=== PATIENT | female | born 1950 | race Caucasian/White ===

== ENCOUNTER 2017-01-25 12:08 | Outpatient (CLI) | payer MEDICARE, BC ==
[2017-01-25 12:21] LABS: CREATININE 0.7 mg/dL (0.4-1.0)
[2017-01-25] MEDS ORDERED: GADOBUTROL 7.5 MMOL/7.5 ML VIAL IVP ONE (13:45)
--- NOTE | 2017-01-25 16:57 | MRI Report ---
MRI BRAIN WITHOUT AND WITH CONTRAST INDICATION: 66-year-old female with dizziness. Has history of "cysts in brain". Please assess. COMPARISON: Head CT 10/09/2015 and brain MRI of 12/24/2015. TECHNIQUE: 1. T1 sagittal and fat-saturated T2 coronal. 2. Coronal fat saturated T2. 3. Axial T1 3-D, FLAIR, T2, T2* and DWI. 4. 7 mL IV Gadavist. T1 3-D axial. FINDINGS: There is generalized prominence of the cerebral cortical sulci, stable. Ventricular size is stable - no hydrocephalus. Again demonstrated are multiple, rounded, cystic-appearing lesions in the periventricular and deep wh ite matter of left cerebral hemisphere in the temporal lobe, frontal lobe, and parietal lobe. The hyp erintense signal from most of these lesions completely suppresses on the axial FLAIR sequence. Some o f the lesions in the deep white matter left parietal lobe (see image 16 of series 701) demonstrates s ome very minimal hyperintensity within them, unchanged. There is FLAIR hyperintensity, surrounding th e cluster of lesions, in the periventricular, deep white matter of left parietal lobe. In addition, s ome FLAIR hyperintensity is seen surrounding lesions in the periventricular white matter of the left temporal lobe. No FLAIR hyperintensity is identified surrounding lesions in the left meyers radiata a nd deep white matter of the mid left frontal lobe. The number of these cystic lesions appears unchang ed. No new lesions are identified. The size of the cysts appear completely stable. None of the lesion s demonstrate enhancement. There is no diffusion restriction within any of cysts. Scattered foci of T2 hyperintensity again noted in periventricular, deep, and subcortical white matte r of the cerebral hemispheres bilaterally, essentially unchanged and probably representing chronic mi croangiopathy. Flow voids are demonstrated in the main intracranial arteries. No evidence of acute infarction on DWI . No enhancing intraaxial or extraaxial mass lesion is demonstrated. No pathologic meningeal or cranial nerve enhancement is seen. There is normal intravascular contrast enhancement in the dural venous si nuses and deep venous structures. Again demonstrated is focal widening of extraaxial space, in anterior interhemispheric fissure along left side of falx, probably due to an underlying arachnoid cyst. No other abnormal extraaxial fluid c ollection is demonstrated. Limited assessment of the orbits reveals no gross pathology. There is minor mucosal thickening scattered throughout the ethmoid air cells. The paranasal sinuses a re otherwise clear. No significant mastoid or middle ear effusion is demonstrated. IMPRESSION: 1. Again demonstrated are numerous, intraaxial, nonenhancing, cystic-appearing lesions, in the left c erebral hemisphere, most likely representing dilated perivascular spaces. No interval change when com pared to MRI study 12/24/2015. In particular, none of the cysts have shown interval increase in size and no new cysts are demonstrated. 2. Stable appearance of previously demonstrated, supratentorial white matter disease. The findings ar e relatively nonspecific, however, this most likely represents chronic microangiopathy. 3. No acute intracranial pathology is demonstrated. In particular, there is no evidence of infarction , hemorrhage or space-occupying mass lesion. Referring Provider Line: [phone] SITE ID: [id number]
== END 2017-01-25 12:09 | disposition home or self-care (01) ==
LOC: DI 12:08
PROVIDERS: ATTEND Internal Medicine
DX: G93.0 Cerebral cysts (principal); R90.82 White matter disease, unspecified
CPT/HCPCS: 36415; 70553; 82565; A9585

== ENCOUNTER 2017-04-12 20:19 | Outpatient (CLI) | payer MEDICARE, BC ==
[2017-04-12 14:10] LABS: ALBUMIN/GLOBULIN RATIO 1.6 (1.0-2.2); BASOPHILS % (AUTO) 1.2 %; BUN - BLOOD UREA NITROGEN 17 mg/dL (6-20); CARBON DIOXIDE - CO2 30 mmol/L (21-32); CHLORIDE 102 mmol/L (101-111); CHOL/HDL RATIO 3.6 (<4.4); CHOLESTEROL 263 mg/dL; CREATININE 0.7 mg/dL (0.4-1.0); EOSINOPHILS # (AUTO) 0.1 10^3/uL (0.0-0.7); EOSINOPHILS % (AUTO) 3.4 %; GFR - MDRD 84 (>89); GLUCOSE 76 mg/dL (70-100); HCT - HEMATOCRIT 40.6 % (37.0-47.0); HDL CHOLESTEROL 73 mg/dL; HGB - HEMOGLOBIN 13.7 g/dL (12.0-16.0); LDL/HDL RATIO 2.4 (<4.4); LYMPHOCYTES # (AUTO) 1.1 10^3/uL (1.5-3.5); MEAN CORPUSCULAR HEMOGLOBIN 30.9 pg (27.0-31.0); MEAN CORPUSCULAR HGB CONC 33.8 g/dL (32.0-36.0); MEAN CORPUSCULAR VOLUME 91.5 fL (81.0-99.0); MEAN PLATELET VOLUME 9.5 fL (7.9-10.8); MONOCYTES # (AUTO) 0.3 10^3/uL (0.0-1.0); MONOCYTES % (AUTO) 9.6 %; NEUTROPHILS # (AUTO) 1.8 10^3/uL (1.5-6.6); NEUTROPHILS % (AUTO) 53.8 %; NUCLEATED RED BLOOD CELLS AUTO 0.1 /100WBC; POTASSIUM 3.9 mmol/L (3.5-5.0); RED BLOOD COUNT 4.44 10^6/uL (4.20-5.40); RED CELL DISTRIBUTION WIDTH 13.6 % (12.0-15.0); SODIUM 139 mmol/L (135-145); TOTAL PROTEIN 7.1 g/dL (6.7-8.2); TRIGLYCERIDES 71 mg/dL; UNCORRECTED WHITE BLOOD COUNT 3.3 x10^3/uL; VLDL CHOLESTEROL 14 mg/dL; WHITE BLOOD COUNT 3.3 x10^3/uL (4.8-10.8)
== END 2017-04-12 20:20 | disposition home or self-care (01) ==
LOC: LAB.R 20:19
PROVIDERS: ATTEND Internal Medicine
DX: Z79.899 Other long term (current) drug therapy (principal); E78.5 Hyperlipidemia, unspecified; M19.90 Unspecified osteoarthritis, unspecified site
CPT/HCPCS: 80053; 80061; 84443; 85025

== ENCOUNTER 2017-04-22 12:54 | Outpatient (CLI) | payer MEDICARE, BC ==
--- NOTE | 2017-04-22 18:18 | Ultrasound Report ---
THYROID ULTRASOUND: 04/22/2017 CLINICAL INDICATION: Thyroid enlargement and nodules seen on MRI. TECHNIQUE: Real-time scanning was performed with promotions representative static images obtained. FINDINGS: The right lobe measures 5.4 x 2.7 x 1.9 cm, and the left lobe measures 5.7 x 2.9 x 2.5 cm. The isthmus measures 2 mm. Both lobes demonstrate diffuse heterogeneity of echotexture, with multi ple confluent nodules. The largest nodule in the right lobe measures 2.8 x 2.0 x 1.6 cm, and is hete rogeneous, without calcifications or increased vascularity. The largest nodule in the left lobe pernell ures 3.5 x 2.8 x 2.3 cm, and is heterogeneous, without increased vascularity or calcifications. Both of the dominant nodules do demonstrate cystic spaces. IMPRESSION: MULTINODULAR GOITER. NO FINE NEEDLE ASPIRATION IS RECOMMENDED BY [facility]. JOB #: [id number] EXT JOB #:[id number]
== END 2017-04-22 12:55 | disposition home or self-care (01) ==
LOC: DI 12:54
PROVIDERS: ATTEND Registered Nurse
DX: E04.2 Nontoxic multinodular goiter (principal)
CPT/HCPCS: 76536

== ENCOUNTER 2017-05-19 14:45 | Outpatient (CLI) | payer MEDICARE, BC ==
--- NOTE | 2017-05-20 15:15 | DEXA Report ---
DEXA SCAN: 05/19/2017 CLINICAL INDICATION: Postmenopausal. TECHNIQUE: Dual energy x-ray absorptiometry (DXA) was performed on a Vatler system. Regions measured are the AP spine, femoral neck, and, if needed, forearm. COMPARISON: None. In accordance with the International Society for Clinical Densitometry (ISCD) guidelines, data from previous exams may be reanalyzed using current recommendations and techniques. This is done to allow a more accurate basis for comparison with the current study. FINDINGS The data for the lumbar spine is as follows: REGION BMD (g/cm/cm) T-SCORE Z-SCORE L1 1.165 0.3 1.8 L2 1.256 0.5 2.0 L3 1.309 0.9 2.4 L4 1.185 -0.1 1.4 TOTAL 1.228 0.4 1.9 NOTE: All evaluable vertebrae are used for classification. The data for the hip is as follows: REGION BMD (g/cm/cm) T-SCORE Z-SCORE Neck 1.029 -0.1 1.4 TOTAL 1.043 0.3 1.5 NOTE: The femoral neck or total proximal femur, whichever is lowest, is used for classification. IMPRESSION: THE WHO CLASSIFICATION BASED ON THE INTERNATIONAL REFERENCE STANDARD IS NORMAL. THE FRACTURE RISK IS NOT INCREASED. RECOMMENDATION: Patients with diagnosis of osteoporosis or osteopenia should have regular bone mineral density assessment. For those eligible for Medicare, routine testing is allowed once every 2 years. Testing frequency can be increased for patients who have rapidly progressing disease or for those who are receiving medical therapy to restore bone mass. COMMENT: World Health Organization (WHO) definitions for osteoporosis and osteopenia: NORMAL BMD: T-score at -1.0 or higher, fracture risk is low. OSTEOPENIA BMD: T-score between -1.0 and -2.5, fracture risk is increased. OSTEOPOROSIS BMD: T-score at -2.5 or lower, fracture risk high. National Osteoporosis Foundation recommends: 1. Obtain adequate dietary calcium (at least 1200 mg per day) and vitamin D (400 -800 international units per day). 2. Participate, as appropriate, in regular weightbearing and muscle- strengthening exercise. 3. Avoid tobacco use and reduce alcohol and caffeine intake. 4. For more detailed information see the website at www.NOF.org. MTDD
== END 2017-05-19 14:46 | disposition home or self-care (01) ==
LOC: DI 14:45
PROVIDERS: ATTEND Internal Medicine
DX: Z78.0 Asymptomatic menopausal state (principal)
CPT/HCPCS: 77080

== ENCOUNTER 2017-05-19 14:46 | Outpatient (CLI) | payer MEDICARE, BC ==
--- NOTE | 2017-05-21 16:23 | Mammography Report ---
DIGITAL SCREENING MAMMOGRAM: 05/19/2017 CLINICAL INDICATION: A 67-year-old nulliparous patient, for screening. COMPARISON: 04/2016, 03/2016, 03/2015. TECHNIQUE: Routine CC and MLO projections were obtained of the breasts. FINDINGS: The breasts again demonstrate scattered fibroglandular densities bilaterally. A few puncta te, typically benign calcifications are present. No suspicious masses, clustered microcalcifications, or regions of architectural distortion are identified. IMPRESSION: BENIGN FINDINGS. RECOMMENDATION: ROUTINE ANNUAL SCREENING UNLESS OTHERWISE CLINICALLY INDICATED. BIRADS CATEGORY 2-BENIGN FINDINGS. STANDARD QUALIFYING STATEMENTS 1. This examination was reviewed with the aid of Computer-Aided Detection (CAD). 2. A negative or benign imaging report should not delay biopsy if clinically suspicious findings are present. Consider surgical consultation if warranted. More than 5% of cancers are not identified by i maging. 3. Dense breasts may obscure an underlying neoplasm. JOB #: [id number] EXT JOB #:[id number]
== END 2017-05-19 14:47 | disposition home or self-care (01) ==
LOC: DI 14:46
PROVIDERS: ATTEND Registered Nurse
DX: Z12.31 Encounter for screening mammogram for malignant neoplasm of breast (principal)
CPT/HCPCS: 77067

== ENCOUNTER 2018-05-05 08:05 | Outpatient (CLI) | payer MEDICARE, BC ==
[2018-05-05 13:22] LABS: BASOPHILS % (AUTO) 1.3 %; EOSINOPHILS # (AUTO) 0.1 10^3/uL (0.0-0.7); EOSINOPHILS % (AUTO) 3.7 %; LYMPHOCYTES # (AUTO) 1.1 10^3/uL (1.5-3.5); LYMPHOCYTES % (AUTO) 29.4 %; MEAN CORPUSCULAR HEMOGLOBIN 31.3 pg (27.0-31.0); MEAN CORPUSCULAR HGB CONC 34.1 g/dL (32.0-36.0); MEAN CORPUSCULAR VOLUME 91.6 fL (81.0-99.0); MEAN PLATELET VOLUME 9.3 fL (7.9-10.8); MONOCYTES # (AUTO) 0.4 10^3/uL (0.0-1.0); MONOCYTES % (AUTO) 10.1 %; NEUTROPHILS # (AUTO) 2.1 10^3/uL (1.5-6.6); NEUTROPHILS % (AUTO) 55.5 %; PLT - PLATELET COUNT 249 10^3/uL (130-450); RED BLOOD COUNT 4.47 10^6/uL (4.20-5.40); RED CELL DISTRIBUTION WIDTH 13.2 % (12.0-15.0); WHITE BLOOD COUNT 3.8 x10^3/uL (4.8-10.8)
[2018-05-05 13:38] LABS: ALBUMIN 4.1 g/dL (3.2-5.5); ALBUMIN/GLOBULIN RATIO 1.5 (1.0-2.2); ALKALINE PHOSPHATASE 66 IU/L (42-121); ALT ALANINE AMINOTRANSFERASE 18 IU/L (10-60); AST ASPARTATE AMINOTRANSFERASE 22 IU/L (10-42); BUN - BLOOD UREA NITROGEN 14 mg/dL (6-20); CALCIUM 8.9 mg/dL (8.5-10.3); CARBON DIOXIDE - CO2 27 mmol/L (21-32); CHLORIDE 102 mmol/L (101-111); CHOL/HDL RATIO 3.7 (<4.4); CHOLESTEROL 260 mg/dL; CREATININE 0.7 mg/dL (0.4-1.0); GFR - MDRD 83 (>89); GLUCOSE 95 mg/dL (70-100); HDL CHOLESTEROL 70 mg/dL; LDL CHOLESTEROL,CALCULATED 172 mg/dL; LDL/HDL RATIO 2.5 (<4.4); SODIUM 138 mmol/L (135-145); TOTAL PROTEIN 6.8 g/dL (6.7-8.2); VLDL CHOLESTEROL 18 mg/dL
== END 2018-05-05 08:06 | disposition home or self-care (01) ==
LOC: LAB.R 08:05
PROVIDERS: ATTEND Internal Medicine
DX: R93.0 Abnormal findings on diagnostic imaging of skull and head, not elsewhere classified (principal); Z79.899 Other long term (current) drug therapy; E78.5 Hyperlipidemia, unspecified; M19.90 Unspecified osteoarthritis, unspecified site
CPT/HCPCS: 80053; 80061; 83721; 84443; 85025

== ENCOUNTER 2018-05-24 07:37 | Outpatient (CLI) | payer MEDICARE, BC ==
--- NOTE | 2018-05-25 14:42 | Mammography Report ---
Reason: SCREENING MAMMO Procedure Date: 05/24/2018 Accession Number: [id number] / [id number] Procedure: [facility] - Screening Mammo Dig Bilat CPT Code: FULL RESULT: EXAM: Screening Mammo Dig Bilat DATE: 05/24/2018 8:42 AM CLINICAL HISTORY: 68 year-old nulliparous female with family history of breast cancer in a paternal aunt in her 60s. TECHNIQUE: Bilateral CC and MLO views were obtained. COMPARISON: 05/19/2017, 05/06/2016, 04/21/2016, 04/18/2015. FINDINGS: The breasts demonstrate heterogeneously dense fibroglandular parenchyma bilaterally. No suspicious masses, clustered microcalcifications, or regions of architectural distortion are identified. IMPRESSION: Negative examination RECOMMENDATION: Routine annual screening unless otherwise clinically indicated. BIRADS CATEGORY 1: Negative STANDARD QUALIFYING STATEMENTS: 1. This examination was not reviewed with the aid of Computer-Aided Detection (CAD). 2. A negative or benign imaging report should not delay biopsy if clinically suspicious findings are present. Consider surgical consultation if warrented. More than 5% of cancers are not identified by imaging. 3. Dense breasts may obscure an underlying neoplasm. 4. This examination was reviewed with the aid of 3D breast imaging (tomosynthesis).
== END 2018-05-24 07:38 | disposition home or self-care (01) ==
LOC: DI 07:37
DX: Z12.31 Encounter for screening mammogram for malignant neoplasm of breast (principal); Z80.3 Family history of malignant neoplasm of breast
CPT/HCPCS: 77067

== ENCOUNTER 2018-05-24 07:41 | Outpatient (CLI) | payer MEDICARE, BC ==
--- NOTE | 2018-05-24 10:45 | Ultrasound Report ---
Reason: NONTOXIC GOITER, UNSPECIFIED Procedure Date: 05/24/2018 Accession Number: [id number] / [id number] Procedure: US - Head or Neck Soft Tissue CPT Code: FULL RESULT: EXAM: THYROID ULTRASOUND EXAM DATE: 05/24/2018 09:34 AM. CLINICAL HISTORY: Nontoxic goiter, unspecified. COMPARISON: Thyroid ultrasound 04/22/2017. TECHNIQUE: Real time sonographic imaging of the thyroid was performed by the us marketing director. Multiple claim representative static images were saved for review. FINDINGS: THYROID GLAND: Right Lobe: 5.5 x 2.1 x 1.9 cm, volume 11.5 cc. Heterogeneous echotexture with confluent multinodular appearance. Right Lobe Nodules: The largest discrete nodule measures 2.8 x 1.8 x 1.9 cm and demonstrates vascularity with color Doppler, contains cystic spaces and calcifications. Left Lobe: 5.9 x 2.7 x 2.4 cm, volume 20 cc. Heterogeneous echotexture with confluent multinodular appearance. Left Lobe Nodules: 3.1 x 2.0 x 2.5 cm vascular nodule with cystic spaces and calcifications as the dominant nodule. Isthmus: 0.2 cm AP. Isthmic Nodules: None. LYMPH NODES: No adenopathy demonstrated in the central or lateral compartment. OTHER: None. IMPRESSION: Multinodular goiter, overall similar in appearance to 2017 when accounting for differences in technique. No biopsy is recommended. Management recommendations are based on 2015 [place] [employer] Management Guidelines for Adult Patients with Thyroid Nodules and Differentiated Thyroid Cancer. RADIA
== END 2018-05-24 07:42 | disposition home or self-care (01) ==
LOC: DI 07:41
PROVIDERS: ATTEND Internal Medicine
DX: E04.2 Nontoxic multinodular goiter (principal)
CPT/HCPCS: 76536

== ENCOUNTER 2019-07-19 07:52 | Outpatient (CLI) | payer MEDICARE, BC ==
--- NOTE | 2019-07-19 08:55 | Mammography Report ---
Reason: ROUTINE MAMMO Procedure Date: 07/19/2019 Accession Number: [id number] / [id number] Procedure: WAYNE - Screening Mammo w/Ru CPT Code: Final Report FULL RESULT: EXAM: Screening Mammo w/Ru DATE: 07/19/2019 8:16 AM CLINICAL HISTORY: The patient is an asymptomatic 69-year-old female presenting for screening mammography. No reported personal nor family history of breast cancer. TECHNIQUE: (B) - Bilateral CC and MLO views were obtained. COMPARISON: 05/24/2018, 05/19/2017, 04/21/2016 PARENCHYMAL PATTERN: (D) - The breasts demonstrate heterogeneously dense fibroglandular parenchyma bilaterally. FINDINGS: The pattern of asymmetry is stable given positional variation. There are no suspicious masses, calcifications, or areas of distortion. IMPRESSION: Negative examination. BI-RADS category 1. RECOMMENDATION: (ANNUAL) - Recommend routine annual screening mammography. BI-RADS CATEGORY: (1) - Negative. STANDARD QUALIFYING STATEMENTS: 1. This examination was not reviewed with the aid of Computer-Aided Detection (CAD). 2. A negative or benign imaging report should not preclude biopsy if clinically suspicious findings are present. 3. Dense breasts may obscure an underlying neoplasm. 4. This examination was reviewed with the aid of 3D breast imaging (tomosynthesis).
== END 2019-07-19 07:53 | disposition home or self-care (01) ==
LOC: DI 07:52
DX: Z12.31 Encounter for screening mammogram for malignant neoplasm of breast (principal)
CPT/HCPCS: 77063; 77067

== ENCOUNTER 2019-07-19 08:19 | Outpatient (CLI) | payer MEDICARE, BC ==
[2019-07-19 08:51] LABS: ALBUMIN 4.2 g/dL (3.2-5.5); ALBUMIN/GLOBULIN RATIO 1.4 (1.0-2.2); ALKALINE PHOSPHATASE 69 IU/L (42-121); ALT ALANINE AMINOTRANSFERASE 19 IU/L (10-60); AST ASPARTATE AMINOTRANSFERASE 20 IU/L (10-42); BILIRUBIN,TOTAL 0.9 mg/dL (0.2-1.0); BUN - BLOOD UREA NITROGEN 13 mg/dL (6-20); CARBON DIOXIDE - CO2 32 mmol/L (21-32); CHLORIDE 102 mmol/L (101-111); CHOL/HDL RATIO 3.9 (<4.4); CHOLESTEROL 272 mg/dL; CREATININE 0.9 mg/dL (0.4-1.0); GFR - MDRD 62 (>89); GLUCOSE 102 mg/dL (70-100); HDL CHOLESTEROL 70 mg/dL; LDL CHOLESTEROL,CALCULATED 184 mg/dL; LDL/HDL RATIO 2.6 (<4.4); SODIUM 140 mmol/L (135-145); TOTAL PROTEIN 7.1 g/dL (6.7-8.2); VLDL CHOLESTEROL 18 mg/dL
[2019-07-19 08:59] LABS: BASOPHILS # (AUTO) 0.1 10^3/uL (0.0-0.1); BASOPHILS % (AUTO) 1.1 %; EOSINOPHILS # (AUTO) 0.2 10^3/uL (0.0-0.7); EOSINOPHILS % (AUTO) 3.4 %; HGB - HEMOGLOBIN 13.2 g/dL (12.0-16.0); LYMPHOCYTES # (AUTO) 1.1 10^3/uL (1.5-3.5); LYMPHOCYTES % (AUTO) 25.2 %; MEAN CORPUSCULAR HEMOGLOBIN 29.9 pg (27.0-31.0); MEAN CORPUSCULAR HGB CONC 31.7 g/dL (32.0-36.0); MEAN CORPUSCULAR VOLUME 94.3 fL (81.0-99.0); MEAN PLATELET VOLUME 10.3 fL (7.9-10.8); MONOCYTES # (AUTO) 0.5 10^3/uL (0.0-1.0); MONOCYTES % (AUTO) 11.5 %; NEUTROPHILS # (AUTO) 2.6 10^3/uL (1.5-6.6); NEUTROPHILS % (AUTO) 58.1 %; PLT - PLATELET COUNT 272 10^3/uL (130-450); RED BLOOD COUNT 4.41 10^6/uL (4.20-5.40); RED CELL DISTRIBUTION WIDTH 12.9 % (12.0-15.0); WHITE BLOOD COUNT 4.4 x10^3/uL (4.8-10.8)
== END 2019-07-19 08:20 | disposition home or self-care (01) ==
LOC: LAB 08:19
PROVIDERS: ATTEND Nurse Practitioner
DX: Z79.899 Other long term (current) drug therapy (principal); E04.9 Nontoxic goiter, unspecified; E78.5 Hyperlipidemia, unspecified
CPT/HCPCS: 36415; 80053; 80061; 83721; 84443; 85025

== ENCOUNTER 2020-08-07 08:36 | Outpatient (CLI) | payer MEDICARE, BC ==
--- NOTE | 2020-08-08 09:38 | Mammography Report ---
BILATERAL DIGITAL SCREENING MAMMOGRAM 3D/2D: 08/07/2020 CLINICAL: Routine screening. Comparison is made to exams dated: 07/19/2019 mammogram, 05/24/2018 mammogram, 05/19/2017 mammogram, mammogram, 04/21/2016 mammogram - [facility], and 04/18/2015 mammogram - [facility]. The tissue of both breasts is heterogeneously dense. This may lower the sensit ivity of mammography. There is a 1 cm oval focal asymmetry in the right breast at 6 o'clock anterior depth. No other significant masses, calcifications, or other findings are seen in either breast. IMPRESSION: INCOMPLETE: NEEDS ADDITIONAL IMAGING EVALUATION The 1 cm oval focal asymmetry in the right breast is indeterminate. Additional views with possible u ltrasound are recommended. This exam was interpreted at Station ID: [id number]. NOTE: For mammograms, a report in lay terms will be sent to the patient. Approximately 15% of breast malignancies will not be visualized mammographically. In the management of a palpable breast mass, a negative mammogram must not discourage biopsy of a clinically suspicious lesion. Electronically Signed By: Ovi Bullock M.D. aty/:08/07/2020 10:13:21 ACR BI-RADS Category 0: Incomplete 3340F PARENCHYMAL PATTERN: (D) - The breast(s) demonstrate(s) heterogeneously dense fibroglandular parenchy ma. BI-RADS CATEGORY: (0) - 0 Mammo and [place] [id number] Immediate follow-up LATERALITY: (R)
== END 2020-08-07 08:37 | disposition home or self-care (01) ==
LOC: DI 08:36
DX: Z12.31 Encounter for screening mammogram for malignant neoplasm of breast (principal); N64.89 Other specified disorders of breast
CPT/HCPCS: 77067

== ENCOUNTER 2020-08-07 08:46 | Outpatient (CLI) | payer MEDICARE, BC ==
[2020-08-07 09:13] LABS: BASOPHILS # (AUTO) 0.1 10^3/uL (0.0-0.1); BASOPHILS % (AUTO) 1.1 %; EOSINOPHILS # (AUTO) 0.1 10^3/uL (0.0-0.7); EOSINOPHILS % (AUTO) 2.7 %; LYMPHOCYTES # (AUTO) 1.1 10^3/uL (1.5-3.5); LYMPHOCYTES % (AUTO) 24.7 %; MEAN CORPUSCULAR HEMOGLOBIN 30.9 pg (27.0-31.0); MEAN CORPUSCULAR HGB CONC 32.8 g/dL (32.0-36.0); MEAN CORPUSCULAR VOLUME 94.3 fL (81.0-99.0); MEAN PLATELET VOLUME 9.7 fL (7.9-10.8); MONOCYTES # (AUTO) 0.5 10^3/uL (0.0-1.0); MONOCYTES % (AUTO) 10.7 %; NEUTROPHILS # (AUTO) 2.7 10^3/uL (1.5-6.6); NEUTROPHILS % (AUTO) 60.6 %; PLT - PLATELET COUNT 268 10^3/uL (130-450); RED BLOOD COUNT 4.53 10^6/uL (4.20-5.40); RED CELL DISTRIBUTION WIDTH 12.6 % (12.0-15.0); WHITE BLOOD COUNT 4.5 x10^3/uL (4.8-10.8)
[2020-08-07 09:32] LABS: ALBUMIN 4.3 g/dL (3.2-5.5); ALBUMIN/GLOBULIN RATIO 1.5 (1.0-2.2); ALKALINE PHOSPHATASE 74 IU/L (42-121); ALT ALANINE AMINOTRANSFERASE 15 IU/L (10-60); AST ASPARTATE AMINOTRANSFERASE 18 IU/L (10-42); BILIRUBIN,TOTAL 0.8 mg/dL (0.2-1.0); BUN - BLOOD UREA NITROGEN 20 mg/dL (6-20); CALCIUM 9.2 mg/dL (8.5-10.3); CARBON DIOXIDE - CO2 29 mmol/L (21-32); CHLORIDE 100 mmol/L (101-111); CHOL/HDL RATIO 4.1 (<4.4); CHOLESTEROL 277 mg/dL; CREATININE 0.9 mg/dL (0.4-1.0); GLUCOSE 113 mg/dL (70-100); HDL CHOLESTEROL 67 mg/dL; LDL CHOLESTEROL,CALCULATED 188 mg/dL; LDL/HDL RATIO 2.8 (<4.4); SODIUM 138 mmol/L (135-145); TOTAL PROTEIN 7.1 g/dL (6.7-8.2); VLDL CHOLESTEROL 22 mg/dL
== END 2020-08-07 08:47 | disposition home or self-care (01) ==
LOC: LAB 08:46
PROVIDERS: ATTEND Nurse Practitioner
DX: E78.5 Hyperlipidemia, unspecified (principal); E04.9 Nontoxic goiter, unspecified; R13.10 Dysphagia, unspecified; C44.90 Unspecified malignant neoplasm of skin, unspecified
CPT/HCPCS: 36415; 80053; 80061; 83721; 84443; 85025

== ENCOUNTER 2020-09-11 08:09 | Outpatient (CLI) | payer MEDICARE, BC ==
--- NOTE | 2020-09-12 11:25 | Ultrasound Report ---
LIMITED ULTRASOUND OF RIGHT BREAST AND AXILLA: 09/11/2020 CLINICAL: Additional evaluation requested from prior study. Comparison is made to exams dated: 08/07/2020 mammogram, 07/19/2019 mammogram, 05/24/2018 mammogram, 05/19/2017 mammogram, 05/06/2016 mammogram, and 04/21/2016 mammogram - [facility]. Color flow and real-time ultrasound of the right breast lower aspect and axilla regions were performe d. Dunlap scale images of the real-time examination were reviewed. There is a 0.7 cm x 0.9 cm x 0.6 cm irregular mass with an angular margin in the right breast at 6:30 o'clock anterior depth. This irregular mass is hypoechoic with an echogenic boundary. This correla jane with mammography findings. Color flow imaging demonstrates that there is vascularity present. No significant abnormalities were seen sonographically in the right axilla. IMPRESSION: SUSPICIOUS OF MALIGNANCY The 0.7 cm x 0.9 cm x 0.6 cm irregular mass in the right breast 6:30 o'clock is suspicious of maligna ncy. An ultrasound guided biopsy is recommended. Findings and recommendations were discussed with the patient during today's examination by Dr. Anaya. This exam was interpreted at Station ID: [id number]. Electronically Signed By: Ovi Bullock M.D. aty/:09/11/2020 09:39:52 Ultrasound BI-RADS: 4 Suspicious for malignancy BI-RADS CATEGORY: (4) - 4 None [id number] Immediate follow-up LATERALITY: ()
--- NOTE | 2020-09-12 11:25 | Mammography Report ---
UNILATERAL RIGHT DIGITAL DIAGNOSTIC MAMMOGRAM 3D/2D: 09/11/2020 CLINICAL: Patient returns today to evaluate a focal asymmetry in the right breast. Comparison is made to exams dated: 08/07/2020 mammogram, 07/19/2019 mammogram, 05/24/2018 mammogram, 05/19/2017 mammogram, 05/06/2016 mammogram, and 04/21/2016 mammogram - [facility]. Th e tissue of right breast is heterogeneously dense. This may lower the sensitivity of mammography. Redemonstration of previously described 1 cm irregular focal asymmetry in the right breast at 6 o'deena ck anterior depth. This is seen in additional views. No other significant masses or calcifications are seen in the breast. IMPRESSION: INCOMPLETE: NEEDS ADDITIONAL IMAGING EVALUATION The 1 cm irregular focal asymmetry in the right breast is indeterminate. An ultrasound is recommended for further evaluation and is scheduled to immediately follow this exami nation. This exam was interpreted at Station ID: [id number]. NOTE: For mammograms, a report in lay terms will be sent to the patient. Approximately 15% of breast malignancies will not be visualized mammographically. In the management of a palpable breast mass, a negative mammogram must not discourage biopsy of a clinically suspicious lesion. Electronically Signed By: Ovi Bullock M.D. aty/:09/11/2020 08:47:19 ACR BI-RADS Category 0: Incomplete 3340F PARENCHYMAL PATTERN: (D) - The breast(s) demonstrate(s) heterogeneously dense fibroglandular paradamaris peterson. BI-RADS CATEGORY: (0) - 0 Ultrasound [id number] Immediate follow-up LATERALITY: (R)
== END 2020-09-11 08:10 | disposition home or self-care (01) ==
LOC: DI 08:09
PROVIDERS: ATTEND Nurse Practitioner
DX: N63.13 Unspecified lump in the right breast, lower outer quadrant (principal)

== ENCOUNTER 2020-09-19 08:37 | Outpatient (CLI) | payer MEDICARE, BC ==
[2020-09-19] MEDS ORDERED: BUFFERED LIDOCAINE 10 ML SYRINGE ONE (09:00)
[2020-09-19] MEDS ORDERED: BUFFERED LIDOCAINE 10 ML SYRINGE IU ONE (15:28)
--- NOTE | 2020-09-20 09:54 | Mammography Report ---
UNILATERAL RIGHT DIGITAL DIAGNOSTIC MAMMOGRAM 3D/2D: 09/19/2020 CLINICAL: Post right breast ultrasound biopsy clip placement imaging. Comparison is made to exams dated: 09/11/2020 ultrasound, 09/11/2020 mammogram, 08/07/2020 mammogram, 07/19/2019 mammogram, 05/24/2018 mammogram, and 05/19/2017 mammogram - [facility]. T he tissue of right breast is heterogeneously dense. This may lower the sensitivity of mammography. There is a marker clip in the appropriate position in the right breast at 6 o'clock anterior depth. IMPRESSION: POST PROCEDURE MAMMOGRAM FOR MARKER PLACEMENT There was a successful marker clip placement in the right breast anterior depth. This exam was interpreted at Station ID: [id number]. NOTE: For mammograms, a report in lay terms will be sent to the patient. Approximately 15% of breast malignancies will not be visualized mammographically. In the management of a palpable breast mass, a negative mammogram must not discourage biopsy of a clinically suspicious lesion. Electronically Signed By: Ovi Bullock M.D. aty/:09/19/2020 14:18:13 ACR BI-RADS Category Post-procedure mammogram for marker placement PARENCHYMAL PATTERN: (D) - The breast(s) demonstrate(s) heterogeneously dense fibroglandular italia peterson. BI-RADS CATEGORY: () - Unspecified - other recall n/a LATERALITY: (B)
--- NOTE | 2020-09-23 13:52 | Ultrasound Report ---
ULTRASOUND GUIDED BIOPSY RIGHT BREAST USING VACUUM DEVICE WITH MARKING DEVICE INSERTED AND POST MAMMO GRAPHIC IMAGIN09/19/2020 CLINICAL: Right breast mass. PATIENT CONSENT: Risks (minor bleeding, infection, vasovagal reaction and repeat procedure), benefits and alternatives were explained to the patient and written informed consent was obtained. Correlation is made to exams dated: 09/11/2020 ultrasound, 09/11/2020 mammogram, 08/07/2020 mammogram, 07/19/2019 mammogram, 05/24/2018 mammogram, and 05/19/2017 mammogram - [facility]. An ultrasound guided biopsy using real-time ultrasound was performed for the 0.7 cm x 0.9 cm x 0.8 cm irregular shaped mass located in the right breast at 6 o'clock anterior depth. This was described o n the previous mammography and ultrasound reports. The skin was prepped in the usual manner. Local anesthetic was administered to the access site. A skin chloé was made in the breast. The abnormality was approached from the lateral aspect. A 13 gauge biopsy needle was placed adjacent to the abnorma lity under ultrasound guidance. Once the needle was documented to be in the correct location, seven specimens were obtained using the Mammotome biopsy system. A clip was inserted into the biopsy cavit y. A sterile dressing was applied to the access site. Post procedure mammographic imaging demonstra jane the location device at the targeted area. The specimens were sent to the laboratory for patholog ical analysis. IMPRESSION: ULTRASOUND GUIDED BIOPSY MALIGNANT Ultrasound guided biopsy of the 0.7 cm x 0.9 cm x 0.8 cm mass in the right breast at 6 o'clock anteri or depth was successful. Pathology indicates malignant invasive ductal carcinoma and ductal carcinom a in situ. Pathology results are concordant with imaging findings. A surgical/oncologic consultatio n is recommended. This exam was interpreted at Station ID: [id number]. Ovi gooden,ar/:09/23/2020 11:50:45 BI-RADS CATEGORY: () - Unspecified - other recall n/a LATERALITY: (B)
== END 2020-09-19 08:38 | disposition home or self-care (01) ==
LOC: DI 08:37
PROVIDERS: ATTEND Nurse Practitioner
DX: C50.811 Malignant neoplasm of overlapping sites of right female breast (principal); Z17.0 Estrogen receptor positive status [ER+]
CPT/HCPCS: 19083

== ENCOUNTER 2020-10-18 16:10 | Outpatient (CLI) | payer MEDICARE, BC ==
[2020-10-18] MEDS ORDERED: GADOBUTROL 7.5 MMOL/7.5 ML VIAL ONE (16:54)
[2020-10-18] MEDS ORDERED: GADOBUTROL 7.5 MMOL/7.5 ML VIAL IVP ONE (18:48)
--- NOTE | 2020-10-21 14:23 | MRI Report ---
SCREENING BREAST MRI OF BOTH BREASTS- - RIGHT BREAST POST-NEEDLE BIOPSY INTERNAL FOLLOW-UP: 10/18/2020 PROCEDURE: MR BREAST BILATERAL WITH CAD INDICATIONS: Breast cancer, staging TECHNIQUE: The patient was placed prone in a dedicated breast imaging coil. Precontrast axial STIR and 3D FLASH without fat saturation sequences were obtained. Both before and after bolus injection of contrast, sequential 1-minute axial 3D FLASH with fat saturation sequences for 3 time points, with subtraction images and maximum intensity projections (MIPs) generated. Delayed sagittal FLASH images with fat s aturation were also obtained. CONTRAST: 7 cc Gadavist IV contrast. Computer-aided detection, including computer algorithm analysis of MRI image data for lesion detectio n and characterization, pharmacokinetic analysis, with further physician review for interpretation, w as performed. COMPARISON: Mammograms 09/19/2020, 09/11/2020, 08/07/2020. Right breast ultrasound 09/19/2020 and . FINDINGS: Image quality: Good. There is minimal background parenchymal enhancement. Right breast: Right breast 6 o'clock anterior depth enhancing spiculated mass measuring 1.5 x 1.5 x 1 cm, (1101/81 and 905/39). Susceptibility artifact from the biopsy clip at the anterior inferior as pect of the lesion. The lesion measures larger on MRI than on ultrasound. Right breast 12:30 o'clock circumscribed focus with delayed enhancement measuring 0.5 cm, (1101/63). There may be intralesional fat seen on the sagittal projection. The abnormality is T2 hyperintense. Left breast: No mass or suspicious enhancement. Miscellaneous: No enlarged right axillary lymph nodes. A few prominent left axillary lymph nodes wi th a short axis diameter measuring up to 0.8 cm, (1001/189). IMPRESSION: INCOMPLETE: NEEDS ADDITIONAL IMAGING EVALUATION 1. Right breast: 6 o'clock anterior depth spiculated enhancing mass measuring 1.6 cm. Biopsy proven invasive ductal carcinoma. 2. Right breast: 12:30 o'clock anterior depth circumscribed focus measuring 0.5 cm. This may repres ent an intramammary lymph node. -Recommend second-look with ultrasound. 3. Left breast: No mass or suspicious enhancement. 4. A few prominent contralateral left axillary lymph nodes. -Recommend clinical correlation, such as recent COVID-19 vaccination. Targeted left axillary ultraso und should also be considered for further evaluation. 5. No enlarged right axillary lymph nodes. BIRADS 0. COMMENT: The imaging literature indicates that a negative contrast breast MRI examination has a high sensitivity and a moderate specificity for detecting and excluding invasive carcinomas to a detection threshold of 3-5 mm; nonetheless, appropriate clinical and mammographic follow-up are recommended. MRI is not sensitive for detecting DCIS (ductal carcinoma in situ) and may not detect large invasive neoplasms that show only minimal enhancement such as mucinous carcinoma. If there are suspicious lakshmi cifications or clinically worrisome palpable masses, then biopsy should still be considered. Invasiv e neoplasms can be hidden by co-existent and benign enhancement caused by mastitis, hormone therapy e ffects, radiation therapy, , and recent biopsy or surgery. False positive examinations can occur in a number of circumstances, including breasts that have recently been subject to invasive pro cedures and those that contain atypical ductal hyperplasia, hormonally stimulated glandular tissue, f at necrosis, or radial scars. Reviewed by: Wily Edwards M.D. on 10/21/2020 at 9:23 This exam was interpreted at Station ID: [id number]. Electronically Signed By: Wily Edwards M.D. slc/:10/21/2020 10:23:34 ACR BI-RADS Category 0: Incomplete 3340F BI-RADS CATEGORY: (0) - 0 Ultrasound [id number] Immediate follow-up LATERALITY: (B)
== END 2020-10-18 16:11 | disposition home or self-care (01) ==
LOC: DI 16:10
PROVIDERS: ATTEND Surgery
DX: C50.811 Malignant neoplasm of overlapping sites of right female breast (principal)
CPT/HCPCS: 77049; A9585

== ENCOUNTER 2020-10-31 14:37 | Outpatient (CLI) | payer MEDICARE, BC ==
--- NOTE | 2020-11-01 06:26 | Ultrasound Report ---
LIMITED ULTRASOUND OF RIGHT BREAST: 10/31/2020 CLINICAL: Patient returns for additional imaging over a suspected mass in the right breast. Comparison is made to exams dated: 10/18/2020 breast MRI, 09/19/2020 mammogram, 09/19/2020 ultrasound b iopsy, 09/11/2020 ultrasound, 09/11/2020 mammogram, and 08/07/2020 mammogram - [facility]. Color flow and real-time ultrasound of the right breast 12-1 o'clock region were performed. There is a 0.8 cm x 0.5 cm x 0.5 cm oval mass with indistinct margins in the right breast at 1 o'cloc k middle depth. This oval mass is hyperechoic. This may correlate with the breast MRI findings. Co jb flow imaging demonstrates that there is no vascularity present. IMPRESSION: KNOWN BIOPSY PROVEN MALIGNANCY The 0.8 cm x 0.5 cm x 0.5 cm oval mass in the right breast resembles fat necrosis or a lipoma and is probably benign. A follow-up ultrasound in 6 months is recommended. Patient reports that she had her second Covid-19 vaccine injection in her left arm on 10/14/20 prior t o her MRI of 10/18/20. The mildly enlarged left axillary lymph nodes seen on prior MRI were likely cachorro ctive. If clinically indicated, a followup left breast ultrasound may be performed in 6 months to dem onstrate resolution of the enlarged nodes. A follow-up right breast ultrasound in 6 months is recommended to demonstrate stability of the mass. A follow-up left axillary ultrasound is also recommended in 6 months to demonstrate resolution of the enlarged left axillary nodes. This exam was interpreted at Station ID: [id number]. Electronically Signed By: Jackson Klein M.D. ddp/:10/31/2020 16:02:05 Ultrasound BI-RADS: 6 Known biopsy proven malignancy BI-RADS CATEGORY: (6) - 6 Ultrasound [id number] 6 month follow-up LATERALITY: (B)
== END 2020-10-31 14:38 | disposition home or self-care (01) ==
LOC: DI 14:37
PROVIDERS: ATTEND Nurse Practitioner
DX: N63.12 Unspecified lump in the right breast, upper inner quadrant (principal)

== ENCOUNTER 2020-10-31 14:39 | Outpatient (CLI) | payer MEDICARE, BC ==
--- NOTE | 2020-10-31 16:36 | DEXA Report ---
PROCEDURE: Dexa Spine and/or Hip INDICATIONS: POST-MENOPAUSAL TECHNIQUE: Dual energy x-ray absorptiometry (DXA) was performed on a [employer] System. Regions measur ed are the AP Spine, femoral neck, and if needed forearm. COMPARISON: Prior 05/19/2017 similar study.. FINDINGS: Lumbar Spine: Bone Mineral Density 1.232 g/cm/cm,T score 0.4, normal, and this represents a statistically insign ificant increase in bone mineral density by 0.3%. Left Hip: Bone Mineral Density 0.997 g/cm/cm,T score -0.1, normal, and this represents a statistically signifi cant reduction in overall bone mineral density at the left hip of 4.4%. Left Femoral Neck: Bone Mineral Density 0.970 g/cm/cm, T score -0.5, normal (T score greater or equal to -1.0: NORMAL) (T score from -1.1 to -2.4: OSTEOPENIA) (T score less than or equal to -2.5 to: OSTEOPOROSIS) Impression: Normal bone mineral density through the lumbosacral spine and left hip, and also the left femoral neck specifically. At the left hip overall there has been a reduction in bone mineral densit y of 4.4% but still within the normal range. Patients with diagnosis of osteoporosis or osteopenia should have regular bone mineral density assess ment. For those eligible for Medicare, routine testing is allowed once every 2 years. Testing frequ ency can be increased for patients who have rapidly progressing disease or for those who are receivin g medical therapy to restore bone mass. Reviewed by: Celestino Barriga MD on 10/31/2020 3:34 PM [place] Approved by: Celestino Barriga MD on 10/31/2020 3:34 PM [place] Station ID: [id number]
== END 2020-10-31 14:40 | disposition home or self-care (01) ==
LOC: DI 14:39
PROVIDERS: ATTEND Internal Medicine Hematology & Oncology
DX: Z78.0 Asymptomatic menopausal state (principal); N63.12 Unspecified lump in the right breast, upper inner quadrant

== ENCOUNTER 2020-11-01 18:24 | Outpatient (CLI) | payer MEDICARE, BC | END 2020-11-01 18:25 | disposition home or self-care (01) | LOC: COV 18:24 | PROVIDERS: ATTEND Surgery | DX: Z01.812 Encounter for preprocedural laboratory examination (principal); C50.911 Malignant neoplasm of unspecified site of right female breast; Z20.822 Contact with and (suspected) exposure to COVID-19 ==

== ENCOUNTER 2020-11-04 08:40 | Day surgery (SDC) | payer MEDICARE, BC ==
[~2020-11-04 08:40] MED LIST: ceFAZolin 2 GM/50 ML 2 GM/50 ML BAG IV ONE
--- NOTE | 2020-11-04 09:04 | PROVIDER PROGRESS NOTE ---
Subjective - General Procedure Performed: Ostomy reversal - Review of Systems Wound/Incisions: positive: Other (Right lower quadrant wound is packed with foul smelling drainage but minimal surrounding erythema. Packing was removed and the wound cleaned and repacked with 1/4 in NuGauze.) General: positive: Weakness. negative: Fever HEENT: positive: No symptoms Pulmonary: positive: No symptoms Cardiovascular: positive: No symptoms Gastrointestinal: positive: Diarrhea (Reports multiple liquid stoos each day) Genitourinary: positive: No symptoms - Other Other Information/Narrative: Rona says she feels she just went home to early. She is absolutely in agreement with a stay in [place] to get stronger prior to going home. She says she just feels weak but really has no significant pain. Multiple diarrhea stools per day are "wearing me out". Denies any blood in her stools.
[2020-11-04] MEDS ORDERED: BUFFERED LIDOCAINE 10 ML SYRINGE ONE (09:14)
[2020-11-04] MEDS ORDERED: BUPIVACAINE 0.5% PF 30 ML VIAL ONE (10:19)
[2020-11-04] MEDS ORDERED: LIDOCAINE 2%-EPI 1:100000 20 ML MDV ONE (10:19)
[2020-11-04] MEDS ORDERED: BUPIVACAINE 0.5% PF 30 ML VIAL INFIL ONE ×2 (11:02→14:43)
[2020-11-04] MEDS ORDERED: LIDOCAINE 2%-EPI 1:100000 20 ML MDV SUBQ ONE ×2 (11:03)
[2020-11-04] MEDS ORDERED: BUFFERED LIDOCAINE 10 ML SYRINGE IU ONE (11:47)
--- NOTE | 2020-11-04 12:25 | ANESTHESIA ---
Pre-Anesthesia VS, & Labs - Diagnosis R breast cancer - Procedure R breast lumpectomy and sentinel node biopsy Vital Signs: Temp Pulse Resp BP Pulse Ox 36.7 C 56 L 18 142/78 H 100 11/04/20 09:01 11/04/20 09:01 11/04/20 09:01 11/04/20 09:01 11/04/20 09:01 Height: 5 ft 4 in Weight (kg): 65 kg Body Mass Index: 24.5 BMI Classification: Healthy weight - NPO >8 hours - Is Patient ?: No Home Medications and Allergies Home Medications: Ambulatory Orders Psyllium [Metamucil] 1 each PO DAILY 10/28/20 Atorvastatin [Lipitor] 10 mg PO DAILY 10/21/20 Cholecalciferol (Vitamin D3) [Vitamin D3] 25 mcg PO DAILY 10/21/20 L.acid/L.casei/B.bif/B.vanessa/Fos [Probiotic Blend Capsule] 1 each PO DAILY 10/21/20 Magnesium Oxide [Magnesium] 400 mg PO DAILY 10/21/20 bisacodyL [Dulcolax] 5 mg PO ONCE PRN 10/21/20 Psyllium [Metamucil] 1 each PO DAILY 10/28/20 Allergies/Adverse Reactions: Allergies Allergy/AdvReac Type Severity Reaction Status Date / Time No Known Drug Allergies Allergy Verified 10/28/20 12:53 Anes History & Medical History - Anesthetic History Family history of Anesthesia Complications: Denies Family history of Malignant Hyperthermia: Denies - Medical History Cardiovascular: reports: High cholesterol Pulmonary: reports: None Gastrointestinal: reports: Chronic constipation Urinary: reports: Nocturia Musculoskeletal: reports: Chronic back pain Endocrine/Autoimmune: reports: None Skin: reports: None History of Cancer?: Yes (breast) - Surgical History General: reports: Colonoscopy Gynecologic: reports: Hysterectomy Orthopedic: reports: Other Exam Dental: WNL Mouth Openin Fingerbreadth Neck Mobility: Normal Mallampati classification: II Thyromental Distance: 4-6 cm Respiratory: Lungs clear Cardiovascular: Regular rate Abdomen: Normal bowel sounds Extremities: No clubbing Neurological: Normal gait Mental/Cognitive Status: Alert/Oriented X3 Cognitive Status: Within normal limits Plan Anesthesia Type: General Consent for Procedure(s) Verified and Reviewed: Yes Code Status: Attempt Resuscitation ASA classification: 3-Severe systemic disease Is this case an emergency?: No
[2020-11-04] MEDS ORDERED: MORPHINE 2 MG/ML CARPUJECT IVP PRN (12:36)
[2020-11-04] MEDS ORDERED: METOCLOPRAMIDE 10 MG/2 ML VIAL IVP PRN (12:36)
[2020-11-04] MEDS ORDERED: fentaNYL 100 MCG/2 ML VIAL IVP PRN (12:36)
[2020-11-04] MEDS ORDERED: ONDANSETRON 4 MG/2 ML VIAL IVP PRN ×2 (12:36→14:58)
[2020-11-04] MEDS ORDERED: ePHEDrine 50 MG/ML VIAL IVP PRN (12:36)
[2020-11-04] MEDS ORDERED: ATROPINE ABBOJECT 1 MG/10 ML SYRINGE IVP PRN (12:36)
[2020-11-04] MEDS ORDERED: NALOXONE 0.4 MG/ML VIAL IVP PRN (12:36)
[2020-11-04] MEDS ORDERED: HYDROmorphone 0.5 MG/0.5 ML SYRINGE IVP PRN (12:36)
[2020-11-04] MEDS ORDERED: LACTATED RINGERS 1,000 ML IV SCH (13:00)
[2020-11-04] MEDS ORDERED: MIDAZOLAM 2 MG/2 ML VIAL ONE (13:09)
[2020-11-04] MEDS ORDERED: LIDOCAINE-MPF 2% 5 ML VIAL ONE (13:09)
[2020-11-04] MEDS ORDERED: fentaNYL 100 MCG/2 ML VIAL ONE (13:09)
[2020-11-04] MEDS ORDERED: PROPOFOL 200 MG/20 ML VIAL IVP ONE (13:09)
[2020-11-04] MEDS ORDERED: ePHEDrine 50 MG/ML VIAL IVP ONE (14:16)
[2020-11-04] MEDS ORDERED: ONDANSETRON 4 MG/2 ML VIAL ONE (14:19)
[2020-11-04] MEDS ORDERED: DEXAMETHASONE 4 MG/ML VIAL ONE (14:19)
--- NOTE | 2020-11-04 14:37 | Nuclear Medicine Report ---
PROCEDURE: Lymph Node Scintigraphy INDICATIONS: RIGHT BREAST CA RADIOPHARMACEUTICAL: 0.5-1.0 mCi Millipore filtered Tc-99m sulfur colloid. TECHNIQUE: The area around the nipple was prepped and draped in a sterile fashion. Tc-99m sulfur colloid was in jected intra-dermally in the outer edge of the areola in the right breast. Images were obtained subs equently. A body contour outline was obtained. FINDINGS: There are a few foci of uptake in the ipsilateral right axilla corresponding to the sentinel lymph no les, which are marked on the skin and the images for referring physician. IMPRESSION: Administration of radiotracer into the right breast periareolar region for intra-operati ve sentinel lymph node localization. Reviewed by: Jackson Klein MD on 11/04/2020 2:36 PM PDT Approved by: Jackson Klein MD on 11/04/2020 2:36 PM PDT Station ID: [id number]
[2020-11-04] MEDS ORDERED: ACETAMINOPHEN 325 MG TABLET PO PRN (14:58)
[2020-11-04] MEDS ORDERED: IBUPROFEN 600 MG TABLET PO PRN (14:58)
[2020-11-04] MEDS ORDERED: oxyCODONE 5 MG TABLET PO PRN ×2 (14:58→14:59)
--- NOTE | 2020-11-04 14:59 | OPERATIVE REPORT ---
Operative Report - General Procedure Date: 11/04/20 Planned Procedure: Left breast lumpectomy x2 and sentinel node biopsy following needle localization and mapping. Pre-Op Diagnosis: 1. Biopsy-proven left breast cancer, 2. Solid mass of the left breast Procedure Performed: Left breast lumpectomy x2 and sentinel node biopsy following needle localization and mapping. Post Op Diagnosis: 1. Biopsy-proven left breast cancer, 2. Solid mass of the left breast - Procedure Note Primary Surgeon: Valente Anesthesia Provider: MYKEL Gutierrez Pathology: 1. Right axillary sentinel node number #1-with 10-second count of 48,387 2. Right axillary sentinel node #2 with 10-second count of 2571 3. Right biopsy-proven malignancy at 6:00 4. Right breast solid mass at 12:00 Estimated Blood Loss (mL): 25 Indications: Biopsy-proven right breast cancer Findings: 1. 2 sentinel nodes with counts as noted. Background in the room was 0 background in the axilla was 21 2. Right breast specimen from 6:44-[id number] malignancy-Clip and mass contained within the specimen Complications: None apparent - Other Other Information/Narrative: After obtaining informed consent, the patient was brought to the operating room and placed in the supine position on the operating table. Following successful induction of general endotracheal anesthesia, appropriate padding of all bony prominences, and placement of appropriate monitors, the left breast was prepped and draped in the standard surgical fashion. A timeout was held per scope protocol. All elements of the surgical safety checklist were followed before, during, and after the procedure. We began the procedure with a sentinel node dissection. The site of the brightest node had been marked in radiology. The neoprobe was used to identify the site of greatest uptake at level 2 in the patient's axilla. The patient is quite thin and has minimal axillary tissue. An incision was created over this area of uptake and carried through the skin and subcutaneous tissue to enter the axillary node packet. The sentinel node was easily identified. It was grossly normal in appearance. It was carefully dissected free from surrounding stop structures sharply, all lymphatics and vasculature were addressed with clips prior to division. The node was liberated into the field. 10-second counts are recorded. Survey of the axilla revealed continued high uptake. A second sentinel node was identified just posterior to the first. This was treated in the same way by addressing all afferent and efferent lymphatics and vasculature with clips prior to division. The node was delivered into the field and a 10- second count obtained. Again a survey of the axilla did not find any other sites of increased uptake.Background in the axilla was checked and found to be 21. Background in the room was 0. The axillary incision was then closed in 2 layers with Vicryl and Monocryl sutures. We turned our attention to the biopsy-proven malignancy at 6:00 in the right breast. The area over the mass and in the periareolar region was infiltrated with a mixture of local anesthetics to cry to field block. A periareolar incision was then created and the mass and associated wire carefully dissected sharply from the dermis anteriorly and from the muscle posteriorly. The mass was removed in a single piece in a medial to lateral fashion. It was marked with a short stitch superior, long stitch lateral, and double stitch anterior. It was finally liberated sharply and delivered into the field. It was submitted to specimen x-ray for clip identification.The wound was checked for hemostasis. It was irrigated again with warm water. While awaiting final word from x-ray regarding the clip, we continued with the benign-appearing mass at 12:00 in the right breast. An curvilinear incision was created over the lesion. The lesion and the wire were carefully dissected free from surrounding structures and delivered into the field. The specimen was marked for orientation and submitted to pathology in formalin.As the lesion is not visible on mammogram we did not submit it for mammographic evaluation. The specimen xray was examined and found to contain the target clip and wire well centered. Both the 12:00 and 6:00 wounds were then closed in 2 layers with Vicryl and Monocryl sutures. All sponge, needle, and instrument counts were correct at the conclusion of the case. The patient was let awakened anesthesia without difficulty and taken to the postanesthesia care unit in good condition.
[2020-11-04] MEDS ORDERED: LACTATED RINGERS 1,000 ML IV ONE (15:05)
[2020-11-04 16:00] VITALS: BP 128/67
[2020-11-04] MEDS ORDERED: IBUPROFEN 600 MG TABLET PO ONE (16:07)
--- NOTE | 2020-11-04 19:19 | ANESTHESIA POST OP EVALUATION ---
Anesthesia Post Eval - Post Anesthesia Eval Vitals: Last Vital Signs Temp 36.8 C 11/04/20 15:59 Pulse 72 11/04/20 15:59 Resp 16 11/04/20 15:59 BP 128/67 11/04/20 15:59 Pulse Ox 97 11/04/20 15:59 CV Function Including HR & BP: positive: Stable Pain Control: positive: Satisfactory Nausea & Vomiting: positive: Negative Mental Status: positive: Baseline Respiratory Status: Airway Patent Hydration Status: Satisfactory Anesthesia Complications: positive: None
--- NOTE | 2020-11-06 08:19 | Mammography Report ---
SPECIMEN RIGHT BREAST: 11/04/2020 CLINICAL: Right breast specimen. Correlation is made to exams dated: 11/04/2020 localization, 10/31/2020 ultrasound, and 09/11/2020 mamm ogram - [facility]. A surgical specimen was imaged for the mass located in the right breast at 6 o'clock anterior depth. This was described on the previous mammography, ultrasound, and MRI reports. IMPRESSION: SPECIMEN The imaged specimen includes the mass, a biopsy clip, and the distal portion of the localization wire . Future imaging is recommended as follows: 05/03/2021 ultrasound. This exam was interpreted at Station ID: [id number]. Blas flores/penrad:11/05/2020 17:00:34 BI-RADS CATEGORY: () - Unspecified - other recall n/a LATERALITY: (B)
--- NOTE | 2020-11-08 08:22 | Mammography Report ---
UNILATERAL RIGHT DIGITAL DIAGNOSTIC MAMMOGRAM 3D/2D: 11/04/2020 CLINICAL: US Wire Localization. Comparison is made to exam dated: 11/04/2020 localization - [facility]. The tissue of right breast is heterogeneously dense. This may lower the sensitivity of mammography. There is an irregular mass in the right breast at 6 o'clock. J wire is present adjcent to lesion and biospy clip. IMPRESSION: POST PROCEDURE MAMMOGRAM FOR MARKER PLACEMENT The irregular mass in the right breast is a known biopsy positive for malignancy with wire localizati on. This exam was interpreted at Station ID: [id number]. NOTE: For mammograms, a report in lay terms will be sent to the patient. Approximately 15% of breast malignancies will not be visualized mammographically. In the management of a palpable breast mass, a negative mammogram must not discourage biopsy of a clinically suspicious lesion. Electronically Signed By: Georgiana Anaya M.D. [facility]/:11/07/2020 13:33:14 ACR BI-RADS Category Post-procedure mammogram for marker placement PARENCHYMAL PATTERN: (D) - The breast(s) demonstrate(s) heterogeneously dense fibroglandular itlaia peterson. BI-RADS CATEGORY: () - Unspecified - other recall n/a LATERALITY: (B)
--- NOTE | 2020-11-08 08:22 | Mammography Report ---
UNILATERAL RIGHT DIGITAL DIAGNOSTIC MAMMOGRAM 3D/2D: 11/04/2020 CLINICAL: US Guided wire localization wire placement additional lesion. Comparison is made to exams dated: 11/04/2020 specimen and 11/04/2020 mammogram - [facility]. The tissue of right breast is heterogeneously dense. This may lower the sensitivity of tru mography. There is an oval focus of increased ultrasound echogencity at 12 o'clock. Localization wire is noted adjacent to mass. IMPRESSION: POST PROCEDURE MAMMOGRAM FOR MARKER PLACEMENT The oval high density fat necrosis in the right breast is probably benign. Focus of ultrasound increased echogencity at 12 o'clock with wire localization. This exam was interpreted at Station ID: [id number]. NOTE: For mammograms, a report in lay terms will be sent to the patient. Approximately 15% of breast malignancies will not be visualized mammographically. In the management of a palpable breast mass, a negative mammogram must not discourage biopsy of a clinically suspicious lesion. Electronically Signed By: Georgiana Anaya M.D. [facility]/:11/07/2020 13:36:00 ACR BI-RADS Category Post-procedure mammogram for marker placement PARENCHYMAL PATTERN: (D) - The breast(s) demonstrate(s) heterogeneously dense fibroglandular italia peterson. BI-RADS CATEGORY: () - Unspecified - other recall n/a LATERALITY: (B)
--- NOTE | 2020-11-08 08:22 | Ultrasound Report ---
ULTRASOUND GUIDED WIRE LOCALIZATION RIGHT BREAST: 11/04/2020 CLINICAL: Pre op wire localization with ultrasound. Correlation is made to exams dated: 10/31/2020 ultrasound, 10/18/2020 breast MRI, 09/19/2020 mammogram, 09/19/2020 ultrasound biopsy, 09/11/2020 ultrasound, and 09/11/2020 mammogram - [facility]. A wire localization using ultrasound guidance was performed for the indistinct lesion located in the right breast at 12 o'clock. This was described on the previous ultrasound and MRI reports. The skin was prepped in the usual manner. The localization was approached from the lateral aspect. A J-hook wire was inserted into the targeted area under ultrasound guidance. IMPRESSION: WIRE LOCALIZATION Wire localization for the lesion in the right breast at 12 o'clock was successful. Future imaging is recommended as follows: 05/03/2021 ultrasound. This exam was interpreted at Station ID: [id number]. Georgiana Anaya M.D. [facility]/:11/07/2020 13:27:48 BI-RADS CATEGORY: () - Unspecified - other recall n/a LATERALITY: (B)
--- NOTE | 2020-11-08 08:22 | Ultrasound Report ---
ULTRASOUND GUIDED WIRE LOCALIZATION RIGHT BREAST: 11/04/2020 CLINICAL: Pre op wire localization with ultrasound. Correlation is made to exams dated: 10/31/2020 ultrasound, 10/18/2020 breast MRI, 09/19/2020 mammogram, 09/19/2020 ultrasound biopsy, 09/11/2020 ultrasound, and 09/11/2020 mammogram - [facility]. A wire localization using ultrasound guidance was performed for the irregular shaped mass located in the right breast at 6 o'clock. This was described on the previous mammography and ultrasound reports . The skin was prepped in the usual manner. Topical and local anesthetic was administered to the ac cess site. The localization was approached from the lateral aspect. A J-hook wire was inserted into the targeted area under ultrasound guidance. IMPRESSION: WIRE LOCALIZATION Wire localization for the mass in the right breast at 6 o'clock was successful. Future imaging is recommended as follows: 05/03/2021 ultrasound. This exam was interpreted at Station ID: [id number]. Georgiana Anaya M.D. [facility]/:11/07/2020 13:26:05 BI-RADS CATEGORY: () - Unspecified - other recall n/a LATERALITY: (B)
== END 2020-11-04 08:41 | disposition home or self-care (01) ==
LOC: SDS 08:40
PROVIDERS: ATTEND Surgery
PROC: 07B50ZX Excision of Right Axillary Lymphatic, Open Approach, Diagnostic (ICD-10-PCS; 2020-11-04)
PROC: 0HBT0ZZ Excision of Right Breast, Open Approach (ICD-10-PCS; principal; 2020-11-04 12:30)
DX: C50.511 Malignant neoplasm of lower-outer quadrant of right female breast (principal); Z17.0 Estrogen receptor positive status [ER+]
CPT/HCPCS: 19285; 19286; 19301; 38525; 76098; 77065; 78195; A9270; J0690; J7120

== ENCOUNTER 2020-11-26 09:30 | Outpatient (CLI) | payer MEDICARE, BC ==
[2020-11-26 10:08] LABS: CALCIUM 9.3 mg/dL (8.5-10.3); CARBON DIOXIDE - CO2 29 mmol/L (21-32); CHLORIDE 104 mmol/L (101-111); CHOLESTEROL 184 mg/dL; GLUCOSE 113 mg/dL (70-100); POTASSIUM 4.2 mmol/L (3.5-5.0); SODIUM 139 mmol/L (135-145)
[2020-11-26 11:15] LABS: ALBUMIN 4.1 g/dL (3.2-5.5); ALBUMIN/GLOBULIN RATIO 1.3 (1.0-2.2); ALKALINE PHOSPHATASE 72 IU/L (42-121); ALT ALANINE AMINOTRANSFERASE 19 IU/L (10-60); AST ASPARTATE AMINOTRANSFERASE 17 IU/L (10-42); BUN - BLOOD UREA NITROGEN 18 mg/dL (6-20); CHOL/HDL RATIO 2.7 (<4.4); CREATININE 0.7 mg/dL (0.4-1.0); GFR - MDRD 83 (>89); HDL CHOLESTEROL 67 mg/dL; LDL CHOLESTEROL,CALCULATED 102 mg/dL; LDL/HDL RATIO 1.5 (<4.4); TOTAL PROTEIN 7.3 g/dL (6.7-8.2); TRIGLYCERIDES 74 mg/dL; VLDL CHOLESTEROL 15 mg/dL
== END 2020-11-26 09:31 | disposition home or self-care (01) ==
LOC: LAB 09:30
PROVIDERS: ATTEND Nurse Practitioner
DX: E78.5 Hyperlipidemia, unspecified (principal)
CPT/HCPCS: 36415; 80053; 80061; 83721

== ENCOUNTER 2021-02-20 11:15 | Outpatient (CLI) | payer MEDICARE, BC ==
--- NOTE | 2021-02-20 12:23 | XRAY Report ---
PROCEDURE: Femur 2V LT INDICATIONS: XR THORACIC LUMBAR SPINE FEMUR,LEG PAIN,LEFT TECHNIQUE: 2 views of the femur were acquired. COMPARISON: None. FINDINGS: Bones: No fractures or dislocations. Chondroid appearing lesion measuring 2 cm is present overlying the medial femoral condyle, unchanged.. Moderate degenerative changes are noted at the hip as well a s mild to moderate at the knee. No erosions. Soft tissues: No suspicious soft tissue calcifications or masses. IMPRESSION: Arthritic changes of the hip and knee as above. Chondroid appearing lesion overlying the medial femoral condyle. This is likely benign. However, give n no prior exams are available for comparison, interval x-ray follow-up in 3 months is recommended to document stability. However, if pain is present within this region, further evaluation with MRI with and without contrast is recommended, as underlying malignancy cannot be definitively excluded. Reviewed by: Georgiana Anaya MD on 02/20/2021 12:21 PM PDT Approved by: Georgiana Anaya MD on 02/20/2021 12:21 PM PDT Station ID: [id number]
--- NOTE | 2021-02-20 12:24 | XRAY Report ---
PROCEDURE: Thoracic Spine 2 View INDICATIONS: XR THORACIC LUMBAR SPINE FEMUR TECHNIQUE: 3 views of the thoracic spine were acquired. COMPARISON: X-ray lumbar spine 02/20/2021 FINDINGS: Bones: No fractures or dislocations. No suspicious bony lesions. 12 pairs of ribs are noted, and a ppear intact where visualized. Multilevel degenerative disc space narrowing is present. Soft tissues: No paravertebral stripe thickening. IMPRESSION: Multilevel degenerative disc space narrowing. Reviewed by: Georgiana Anaya MD on 02/20/2021 12:23 PM PDT Approved by: Georgiana Anaya MD on 02/20/2021 12:23 PM PDT Station ID: [id number]
--- NOTE | 2021-02-20 12:24 | XRAY Report ---
PROCEDURE: Lumbar Spine 2 View INDICATIONS: XR THORACIC LUMBAR SPINE FEMUR,LEG PAIN,LEFT TECHNIQUE: 2 views of the lumbar spine were acquired. COMPARISON: None. FINDINGS: Bones: 5 [id number]-[id number] vertebrae are present. There is rated 1 anterolisthesis of L4 on L5 measur ing 8 mm. 7 mm grade 1 retrolisthesis is present of L1 on L2. There is severe disc space narrowing at L2-3, L4-5, moderate throughout the remainder of the lumbar spine. Moderate to severe foraminal narr owing is noted L1-L2, moderate L2-3, L4-5 and L5-S1. No vertebral body compression fractures. No brittni picious bony lesions. Multilevel nonbridging anterior osteophytes are present. Soft tissues: Overlying bowel gas pattern is normal. No suspicious soft tissue calcifications. IMPRESSION: Multilevel degenerative changes as above. Reviewed by: Georgiana Anaya MD on 02/20/2021 12:22 PM PDT Approved by: Georgiana Anaya MD on 02/20/2021 12:22 PM PDT Station ID: [id number]
== END 2021-02-20 11:16 | disposition home or self-care (01) ==
LOC: DI 11:15
PROVIDERS: ATTEND Internal Medicine
DX: M54.6 Pain in thoracic spine (principal); M79.605 Pain in left leg; M47.817 Spondylosis without myelopathy or radiculopathy, lumbosacral region; M47.814 Spondylosis without myelopathy or radiculopathy, thoracic region

== ENCOUNTER 2021-05-07 08:51 | Outpatient (CLI) | payer MEDICARE, BC ==
--- NOTE | 2021-05-08 08:41 | Mammography Report ---
UNILATERAL RIGHT DIGITAL DIAGNOSTIC MAMMOGRAM 3D/2D: 05/07/2021 CLINICAL: Post right lumpectomy and radiation therapy. Comparison is made to exams dated: 11/04/2020 mammogram, 11/04/2020 mammogram, 11/04/2020 localization, 10/31/2020 ultrasound, 10/18/2020 breast MRI, and 09/19/2020 mammogram - [facility]. The tissue of right breast is heterogeneously dense. This may lower the sensitivity of mammography. There is a benign post-surgical scar in the right breast posterior depth superior region seen on the mediolateral oblique view only. There also is a benign post-surgical scar in the right breast middle depth inferior region seen on th e mediolateral oblique view only. No other significant masses or calcifications are seen in the breast. IMPRESSION: BENIGN There is no mammographic evidence of malignancy. Return to annual mammogram screening schedule is rec ommended. This exam was interpreted at Station ID: [id number]. NOTE: For mammograms, a report in lay terms will be sent to the patient. Approximately 15% of breast malignancies will not be visualized mammographically. In the management of a palpable breast mass, a negative mammogram must not discourage biopsy of a clinically suspicious lesion. Electronically Signed By: Mukesh Vera M.D., jr/chey:05/07/2021 09:51:05 ACR BI-RADS Category 2: Benign Finding(s) 3342F PARENCHYMAL PATTERN: (D) - The breast(s) demonstrate(s) heterogeneously dense fibroglandular italia peterson. BI-RADS CATEGORY: (2) - 2 Mammogram [id number] return to screening LATERALITY: (B)
== END 2021-05-07 08:52 | disposition home or self-care (01) ==
LOC: DI 08:51
PROVIDERS: ATTEND Surgery
DX: C50.811 Malignant neoplasm of overlapping sites of right female breast (principal)

== ENCOUNTER 2021-09-03 08:13 | Outpatient (CLI) | payer MEDICARE, BC ==
[2021-09-03 08:29] LABS: EOSINOPHILS # (AUTO) 0.1 10^3/uL (0.0-0.7); HCT - HEMATOCRIT 40.7 % (37.0-47.0); HGB - HEMOGLOBIN 13.2 g/dL (12.0-16.0); LYMPHOCYTES % (AUTO) 25.6 %; MEAN CORPUSCULAR HEMOGLOBIN 30.4 pg (27.0-31.0); MEAN CORPUSCULAR HGB CONC 32.4 g/dL (32.0-36.0); MEAN CORPUSCULAR VOLUME 93.8 fL (81.0-99.0); MEAN PLATELET VOLUME 9.8 fL (7.9-10.8); MONOCYTES # (AUTO) 0.4 10^3/uL (0.0-1.0); NEUTROPHILS # (AUTO) 2.4 10^3/uL (1.5-6.6); NEUTROPHILS % (AUTO) 60.2 %; PLT - PLATELET COUNT 231 10^3/uL (130-450); RED BLOOD COUNT 4.34 10^6/uL (4.20-5.40); RED CELL DISTRIBUTION WIDTH 12.7 % (12.0-15.0)
[2021-09-03 08:46] LABS: ALBUMIN 4.1 g/dL (3.2-5.5); ALBUMIN/GLOBULIN RATIO 1.5 (1.0-2.2); ALKALINE PHOSPHATASE 60 IU/L (42-121); ALT ALANINE AMINOTRANSFERASE 20 IU/L (10-60); AST ASPARTATE AMINOTRANSFERASE 19 IU/L (10-42); BILIRUBIN,TOTAL 0.8 mg/dL (0.2-1.0); BUN - BLOOD UREA NITROGEN 19 mg/dL (6-20); CALCIUM 8.8 mg/dL (8.5-10.3); CARBON DIOXIDE - CO2 28 mmol/L (21-32); CHLORIDE 101 mmol/L (101-111); CHOL/HDL RATIO 2.7 (<4.4); CHOLESTEROL 191 mg/dL; CREATININE 0.9 mg/dL (0.4-1.0); GFR - MDRD 62 (>89); GLUCOSE 111 mg/dL (70-100); HDL CHOLESTEROL 70 mg/dL; LDL CHOLESTEROL,CALCULATED 113 mg/dL; LDL/HDL RATIO 1.6 (<4.4); POTASSIUM 4.3 mmol/L (3.5-5.0); SODIUM 137 mmol/L (135-145); TOTAL PROTEIN 6.8 g/dL (6.7-8.2); TRIGLYCERIDES 41 mg/dL; VLDL CHOLESTEROL 8 mg/dL
== END 2021-09-03 08:14 | disposition home or self-care (01) ==
LOC: LAB 08:13
PROVIDERS: ATTEND Internal Medicine
DX: E78.5 Hyperlipidemia, unspecified (principal); Z79.899 Other long term (current) drug therapy
CPT/HCPCS: 36415; 80053; 80061; 83721; 85025

== ENCOUNTER 2021-09-11 13:50 | Outpatient (CLI) | payer MEDICARE, BC ==
[2021-09-11 19:14] LABS: FECAL OCCULT BLOOD (FIT) NEGATIVE (NEGATIVE)
== END 2021-09-11 13:51 | disposition home or self-care (01) ==
LOC: LAB 13:50
PROVIDERS: ATTEND Internal Medicine
DX: Z12.11 Encounter for screening for malignant neoplasm of colon (principal)
CPT/HCPCS: 82274

== ENCOUNTER 2022-08-05 07:13 | Outpatient (CLI) | payer MEDICARE, BC ==
[2022-08-05 07:27] LABS: EOSINOPHILS # (AUTO) 0.2 10^3/uL (0.0-0.7); EOSINOPHILS % (AUTO) 5.1 %; HCT - HEMATOCRIT 41.5 % (37.0-47.0); HGB - HEMOGLOBIN 13.3 g/dL (12.0-16.0); LYMPHOCYTES % (AUTO) 25.1 %; MEAN CORPUSCULAR HEMOGLOBIN 29.8 pg (27.0-31.0); MEAN PLATELET VOLUME 9.4 fL (7.9-10.8); MONOCYTES # (AUTO) 0.5 10^3/uL (0.0-1.0); MONOCYTES % (AUTO) 11.8 %; NEUTROPHILS # (AUTO) 2.4 10^3/uL (1.5-6.6); PLT - PLATELET COUNT 239 10^3/uL (130-450); RED BLOOD COUNT 4.46 10^6/uL (4.20-5.40); WHITE BLOOD COUNT 4.2 x10^3/uL (4.8-10.8)
[2022-08-05 07:45] LABS: ALBUMIN/GLOBULIN RATIO 1.3 (1.0-2.2); ALKALINE PHOSPHATASE 79 IU/L (42-121); ALT ALANINE AMINOTRANSFERASE 23 IU/L (10-60); AST ASPARTATE AMINOTRANSFERASE 23 IU/L (10-42); BILIRUBIN,TOTAL 0.8 mg/dL (0.2-1.0); BUN - BLOOD UREA NITROGEN 18 mg/dL (6-20); CALCIUM 9.2 mg/dL (8.5-10.3); CARBON DIOXIDE - CO2 29 mmol/L (21-32); CHLORIDE 102 mmol/L (101-111); CHOL/HDL RATIO 3.1 (<4.4); CHOLESTEROL 201 mg/dL; CREATININE 0.9 mg/dL (0.4-1.0); GFR - MDRD 62 (>89); GLUCOSE 104 mg/dL (70-100); HDL CHOLESTEROL 64 mg/dL; LDL CHOLESTEROL,CALCULATED 125 mg/dL; POTASSIUM 4.2 mmol/L (3.5-5.0); SODIUM 138 mmol/L (135-145); TOTAL PROTEIN 7.1 g/dL (6.7-8.2); TRIGLYCERIDES 61 mg/dL; VLDL CHOLESTEROL 12 mg/dL
[2022-08-05 07:55] LABS: THYROID STIMULATING HORMONE 3.56 uIU/mL (0.34-5.60)
== END 2022-08-05 07:14 | disposition home or self-care (01) ==
LOC: LAB 07:13
PROVIDERS: ATTEND Physician Assistant
DX: Z79.899 Other long term (current) drug therapy (principal); E78.5 Hyperlipidemia, unspecified; E04.2 Nontoxic multinodular goiter
CPT/HCPCS: 36415; 80053; 80061; 83721; 84443; 85025

== ENCOUNTER 2022-08-28 10:26 | Outpatient (CLI) | payer MEDICARE, BC ==
--- NOTE | 2022-08-28 11:56 | XRAY Report ---
PROCEDURE: Cervical Spine Comp w/Flex/Ext INDICATIONS: FACET SYNDROME OF CERVICAL SPINE TECHNIQUE: 7 views of the cervical spine were acquired. COMPARISON: None FINDINGS: Bones: Trace anterolisthesis of C2 on C3 and retrolisthesis of C3 on C4. Overall straightening of nor mal cervical lordosis. Trace retrolisthesis of C5 on C6. Moderate overall spondylosis with facet arth ropathy, osteophytes, disc space height loss at multiple levels. Trace retrolisthesis of C4 on C5 is a little more noticeable on extension images, otherwise no dynami c instability. On oblique images, suspected mild to moderate narrowing of the right C3-C4 neural foramen. There may also be some mild narrowing at C7-T1 bilaterally. Normal C1 on C2 alignment. Soft tissues: No pathologic free vertebral soft tissue swelling or calcifications. IMPRESSION: Moderate spondylosis and multilevel spondylolisthesis as described above. If there is high concern fo r further derangement, consider MRI evaluation. Reviewed by: Don Andersen MD on 08/28/2022 11:55 AM PST Approved by: Don Andersen MD on 08/28/2022 11:55 AM PST Station ID: [id number]
== END 2022-08-28 10:27 | disposition home or self-care (01) ==
LOC: DI 10:26
PROVIDERS: ATTEND Physician Assistant
DX: M47.812 Spondylosis without myelopathy or radiculopathy, cervical region (principal); M43.12 Spondylolisthesis, cervical region; Z86.39 Personal history of other endocrine, nutritional and metabolic disease
CPT/HCPCS: 82306

== ENCOUNTER 2022-10-06 11:47 | Outpatient (CLI) | payer MEDICARE, BC ==
--- NOTE | 2022-10-06 15:47 | XRAY Report ---
PROCEDURE: Wrist 3 View LT INDICATIONS: DEQUERVAINS TENOSYNOVITIS TECHNIQUE: 3 views of the wrist were acquired. COMPARISON: None FINDINGS: Bones: No fractures or dislocations. No suspicious bony lesions. Joint space narrowing and periart icular osteophyte formation at the radiocarpal, scaphotrapezial, and first metacarpal joints. Scaphoid view: Not requested Soft tissues: No suspicious soft tissue calcifications. IMPRESSION: Osteoarthritis. No acute fracture. No osseous lesion. If symptoms and/or clinical suspicion for patho logy continue, further assessment with repeat plain films, or advanced imaging (e.g., CT, MRI, or bon e scan) is recommended for further assessment. Reviewed by: Ti Anderson MD on 10/06/2022 3:46 PM PST Approved by: Ti Anderson MD on 10/06/2022 3:46 PM PST Station ID: [id number]
== END 2022-10-06 11:48 | disposition home or self-care (01) ==
LOC: DI 11:47
PROVIDERS: ATTEND Physician Assistant
DX: M19.032 Primary osteoarthritis, left wrist (principal); M65.4 Radial styloid tenosynovitis [de Quervain]

== ENCOUNTER 2023-07-05 08:16 | Day surgery (SDC) | payer MEDICARE, BC ==
--- NOTE | 2023-07-05 08:17 | ANESTHESIA ---
Pre-Anesthesia VS, & Labs - Diagnosis screening - Procedure colonoscopy Height: 5 ft 4 in - NPO >8 hours Last Fluid Intake: am prep - Is Patient ?: No - Lab Results Lab results reviewed: Yes Home Medications and Allergies Atorvastatin [Lipitor] 5 mg PO DAILY 10/21/20 Cholecalciferol (Vitamin D3) [Vitamin D3] 4,000 mcg PO DAILY 10/21/20 L.acid/L.casei/B.bif/B.vanessa/Fos [Probiotic Blend Capsule] 1 each PO DAILY 10/21/20 Magnesium Oxide [Magnesium] 400 mg PO DAILY PRN 10/21/20 Psyllium [Metamucil] 1 each PO PRN PRN 10/28/20 Calcium Citrate/Vitamin D3 [Citracal-D3 200Mg-250 Unit Tab] 2 tab PO DAILY 03/03/21 Exemestane [Aromasin] 25 mg PO DAILY 03/16/22 Allergies/Adverse Reactions: Allergies Allergy/AdvReac Type Severity Reaction Status Date / Time No Known Drug Allergies Allergy Verified 03/03/21 16:20 Anes History & Medical History - Anesthetic History Anesthesia Complications: reports: No previous complications Family history of Anesthesia Complications: Denies Family history of Malignant Hyperthermia: Denies - Medical History Cardiovascular: reports: High cholesterol Pulmonary: reports: None Gastrointestinal: reports: Chronic constipation Urinary: reports: Nocturia Musculoskeletal: reports: Chronic back pain Endocrine/Autoimmune: reports: None Skin: reports: None - Surgical History General: reports: Colonoscopy Gynecologic: reports: Hysterectomy Orthopedic: reports: Other Exam General: Alert, Oriented x3, Cooperative Dental: WNL Mouth Openin Fingerbreadth Neck Mobility: Normal Mallampati classification: II Thyromental Distance: 4-6 cm Respiratory: Lungs clear, Normal breath sounds, No respiratory distress Cardiovascular: Regular rate Neurological: Normal speech Mental/Cognitive Status: Alert/Oriented X3, Normal for patient Cognitive Status: Within normal limits Plan Anesthesia Type: Total IV Consent for Procedure(s) Verified and Reviewed: Yes Code Status: Attempt Resuscitation ASA classification: 2-Mild systemic disease Is this case an emergency?: No
[2023-07-05 08:39] VITALS: O2SAT 100
[2023-07-05] MEDS ORDERED: LACTATED RINGERS 1,000 ML IV ONE ×2 (08:49→10:03)
[2023-07-05] MEDS ORDERED: MIDAZOLAM 2 MG/2 ML VIAL ONE (09:06)
[2023-07-05] MEDS ORDERED: PROPOFOL 500 MG/50 ML 500 MG/50 ML VIAL ONE (09:06)
[2023-07-05] MEDS ORDERED: LIDOCAINE-MPF 2% 5 ML VIAL ONE (09:19)
[2023-07-05] MEDS ORDERED: PROPOFOL 200 MG/20 ML VIAL IVP ONE (09:43)
--- NOTE | 2023-07-05 10:22 | ANESTHESIA POST OP EVALUATION ---
Anesthesia Post Eval - Post Anesthesia Eval Vitals: Last Vital Signs Temp 36.3 C L 07/05/23 10:15 Pulse 64 07/05/23 10:15 Resp 14 07/05/23 10:15 BP 179/85 H 07/05/23 10:15 Pulse Ox 100 07/05/23 10:15 O2 Flow Rate CV Function Including HR & BP: Stable Pain Control: Satisfactory Nausea & Vomiting: Negative Mental Status: Baseline Respiratory Status: Airway Patent Hydration Status: Satisfactory Anesthesia Complications: None
[2023-07-05 11:12] VITALS: BP 157/85
== END 2023-07-05 08:17 | disposition home or self-care (01) ==
LOC: SDS 08:16
PROVIDERS: ATTEND Surgery
PROC: 0DBP8ZZ Excision of Rectum, Via Natural or Artificial Opening Endoscopic (ICD-10-PCS; principal; 2023-07-05 09:30)
DX: Z12.11 Encounter for screening for malignant neoplasm of colon (principal); K62.1 Rectal polyp; K64.9 Unspecified hemorrhoids; C50.911 Malignant neoplasm of unspecified site of right female breast
CPT/HCPCS: 45380; J7120

== ENCOUNTER 2024-01-20 16:23 | Outpatient (CLI) | payer MEDICARE, BC ==
--- NOTE | 2024-01-20 23:24 | XRAY Report ---
PROCEDURE: Knee 4+V RT INDICATIONS: KNEE PAIN,RIGHT TECHNIQUE: 4 views of the knee(s) were acquired. COMPARISON: None. FINDINGS: Bones: No fractures or dislocations. No suspicious bony lesions. Tricompartmental degenerative ch anges of the right knee. Mild medial femorotibial compartment joint space loss. Soft tissues: Small knee joint effusion. No suspicious soft tissue calcifications or masses. IMPRESSION: Right knee without acute osseous abnormalities. Tricompartmental osteoarthrosis with mild medial femo rotibial compartment joint space narrowing. Small joint effusion. Reviewed by: Ovi Hollingsworth MD on 01/20/2024 11:23 PM PDT Approved by: Ovi Hollingsworth MD on 01/20/2024 11:23 PM PDT Station ID: [id number]
== END 2024-01-20 16:24 | disposition home or self-care (01) ==
LOC: DI 16:23
PROVIDERS: ATTEND Physician Assistant Surgical
DX: M17.11 Unilateral primary osteoarthritis, right knee (principal); M25.461 Effusion, right knee